=== PATIENT | female | born 1995 | race Caucasian/White ===

== ENCOUNTER 2019-11-07 13:32 | Emergency (ER) | payer OTHER ==
[~2019-11-07] VITALS: Ht 170.2 cm; Wt 127.9 kg
[2019-11-07 13:41] VITALS: Ht 170.2 cm; Wt 127.9 kg
[2019-11-07 16:15] VITALS: BP 124/70
== END 2019-11-07 16:15 | disposition home or self-care (01) ==
LOC: ED 13:32
DX: R13.10 Dysphagia, unspecified (principal); R05 Cough; R09.89 Other specified symptoms and signs involving the circulatory and respiratory systems

== ENCOUNTER 2019-12-15 03:40 | Emergency (ER) | payer OTHER ==
[~2019-12-15] VITALS: Ht 170.2 cm; Wt 131.1 kg
[2019-12-15 06:05] VITALS: BP 131/58
== END 2019-12-15 06:06 | disposition home or self-care (01) ==
LOC: ED 03:40
DX: S02.2XXA Fracture of nasal bones, initial encounter for closed fracture (principal); W22.8XXA Striking against or struck by other objects, initial encounter; Y93.89 Activity, other specified; Y92.89 Other specified places as the place of occurrence of the external cause; Y99.8 Other external cause status

== ENCOUNTER 2020-11-09 10:11 | Emergency (ER) | payer OTHER ==
[~2020-11-09] VITALS: Ht 170.2 cm; Wt 127.5 kg
[2020-11-09 10:39] VITALS: Ht 170.2 cm; Wt 127.5 kg
[2020-11-09] MEDS ORDERED: MOTION SICKNESS25 MG PO (11:10)
[2020-11-09] MEDS ORDERED: APAP325 MG PO (11:10)
[2020-11-09] MEDS ORDERED: ZOF4 PO (11:10)
[2020-11-09 11:38] VITALS: BP 119/72
== END 2020-11-09 11:38 | disposition home or self-care (01) ==
LOC: ED 10:11
DX: S06.0X0A Concussion without loss of consciousness, initial encounter (principal); W22.8XXA Striking against or struck by other objects, initial encounter; Y93.89 Activity, other specified; Y92.89 Other specified places as the place of occurrence of the external cause; Y99.8 Other external cause status
CPT/HCPCS: Q0162